=== PATIENT | male | born 1995 | race Caucasian/White ===

== ENCOUNTER 2022-04-15 00:24 | Emergency (ER) | payer SELFPAY ==
[2022-04-15 01:38] VITALS: BP 120/78
== END 2022-04-15 01:40 | disposition home or self-care (01) ==
LOC: ED 00:24
DX: S51.812A Laceration without foreign body of left forearm, initial encounter (principal); Z28.310 Unvaccinated for COVID-19; W25.XXXA Contact with sharp glass, initial encounter; W22.8XXA Striking against or struck by other objects, initial encounter

== ENCOUNTER 2022-08-09 03:13 | Emergency (ER) | payer SELFPAY ==
[~2022-08-09] VITALS: Ht 167.6 cm; Wt 68.0 kg
[~2022-08-09 03:13] MED LIST: CEPHALEXIN500 M1 PO; PREDNISONE20 M1 PO; PROVENTIL0.09 MG/A1 IH
[2022-08-09 03:20] VITALS: BP 128/77
== END 2022-08-09 05:49 | disposition home or self-care (01) ==
LOC: ED 03:13
DX: S51.812A Laceration without foreign body of left forearm, initial encounter (principal); Z28.310 Unvaccinated for COVID-19; Y04.8XXA Assault by other bodily force, initial encounter

== ENCOUNTER 2024-03-22 08:49 | Emergency (ER) | payer SELFPAY ==
[~2024-03-22] VITALS: Ht 167.6 cm; Wt 68.0 kg
[2024-03-22 09:06] VITALS: BP 123/102
[2024-03-22] MEDS ORDERED: ACETAMINOPHEN-H1 TA2 PO (09:29)
[2024-03-22] MEDS ORDERED: AMOXICILLIN AND1 TA2 PO (09:29)
[2024-03-22] MEDS ORDERED: NAPROSYN500 M1 PO (09:38)
[2024-03-22] MEDS ORDERED: Home HYDROcodone/Acetaminophen 5/325 MG #4 TABS/PACK PO ONE (09:45)
== END 2024-03-22 09:57 | disposition home or self-care (01) ==
LOC: ED 08:49
DX: K04.7 Periapical abscess without sinus (principal)

== ENCOUNTER 2024-03-25 00:19 | Emergency (ER) | payer SELFPAY ==
[~2024-03-25] VITALS: Ht 167.6 cm; Wt 68.5 kg
[~2024-03-25 00:19] MED LIST changes: +ACETAMINOPHEN-H1 TA2 PO; +AMOXICILLIN AND1 TA2 PO; +NAPROSYN500 M1 PO
[2024-03-25 00:32] LABS: BASO # 0.02 K/mm3 (0.02-0.10); EOS % 4.7 % (0.0-4.0); HEMATOCRIT 42.9 % (42.0-52.0); HEMOGLOBIN 14.7 g/dL (13.5-18.0); LYMPH# 2.36 K/mm3 (1.50-4.00); MEAN CELL VOLUME 88 fl (78-100); MEAN CORPUSCULAR HEMOGLOBIN 30 pg (27-31); MEAN CORPUSCULAR HGB CONC 34 g/dL (33-37); MEAN PLATELET VOLUME 10.6 fl (7.4-10.4); MONO # 0.72 K/mm3 (0.20-0.80); NEU # 3.02 K/mm3 (1.40-6.50); PLATELET COUNT 207 K/mm3 (130-400); WHITE BLOOD COUNT 6.4 K/mm3 (4.8-10.8)
[2024-03-25 00:39] LABS: ALBUMIN 4.3 g/dL (3.5-5.0)
[2024-03-25 00:40] LABS: CALCIUM 9.2 mg/dL (8.3-10.5)
[2024-03-25 00:41] LABS: TOTAL PROTEIN 6.7 g/dL (6.4-8.3)
[2024-03-25 00:43] LABS: TOTAL BILIRUBIN 1.8 mg/dL (0.2-1.2)
[2024-03-25 01:11] VITALS: BP 116/83
== END 2024-03-25 01:18 | disposition home or self-care (01) ==
LOC: ED 00:19
PROVIDERS: Family Medicine
DX: K13.79 Other lesions of oral mucosa (principal)